=== PATIENT | female | born 1950 | race Caucasian/White ===

== ENCOUNTER 2020-02-11 12:02 | Day surgery (SDC) | payer MEDICARE, BC ==
[~2020-02-11] VITALS: Ht 170.2 cm; Wt 85.5 kg
[~2020-02-11 12:02] MED LIST: ANTACID300 MG PO; CO Q-10200 MG PO; FLUTICASONE-SA1 EAC3 INH; FOLIC ACID0.8 MG PO; LEVOTHYROXINE50 MCG PO; VITAMIN D210 MCG PO
[2020-02-11] MEDS ORDERED: 24 HOUR ALLERG9.9 ML (12:20)
--- NOTE | 2020-02-11 13:19 | NUR ---
02/11/20 1319 Maria Dolores Fragoso 1315- PT TO PACU IN LL POSITION. EYES OPEN BUT DROWSY. DENIES PAIN AND NAUSEA. BREATHING EASY AND UNLABORED. SPO2 >95% ON 3 L O2 VIA NC. PT ENCOURAGED TO PASS GAS.
--- NOTE | 2020-02-13 07:58 | OR ---
[facility] [address], [place] [address] Signed DATE OF OPERATION: 02/11/2020 SURGEON: Patrick Hilliard MD PREOPERATIVE DIAGNOSIS: History of tubular adenoma, 2013. POSTOPERATIVE DIAGNOSIS: Normal colon to cecum. PROCEDURE: Total colonoscopy to cecum. ANESTHESIA: Intravenous sedation, fentanyl 100 mcg and Versed 4 mg. INDICATION: This 69-year-old white woman is a patient of Dr. Andrzej Perez and well known to me from the past. She has undergone breast cancer treatment by me, which included lumpectomy, sentinel lymph node biopsy, radiation therapy and chemotherapy in 2005. She is symptom-free as regards to colon currently. She is admitted at this time to undergo colonoscopy for surveillance. She understands the risks of bleeding, infection, perforation. FINDINGS: The prep was excellent. Complete colonoscopy was undertaken to the cecum without question with good visualization of the appendiceal orifice and ileocecal valve. There was no sign of polyps or other abnormality. DESCRIPTION OF PROCEDURE: The patient was brought to the endoscopy suite and placed in lateral decubitus position, given intravenous sedation to the point of slurred speech and nystagmus. Digital rectal examination was normal. An Olympus video colonoscope was passed in the rectum and manipulated throughout the colon ultimately intubating the cecum. The appendiceal orifice was well identified. The scope was withdrawn from that point and examination throughout showed no sign of polyps, diverticular formation, colitis, or cancer. Retroflex view in the rectum was not technically possible. Good visualization of the rectum was noted. Otherwise, showing no sign of abnormality. The scope was removed and the patient was taken to the Electronically Signed By: PATRICK HILLIARD MD 02/13/20 0758 PATIENT NAME: MER PETERSON OPERATIVE REPORT DATE OF : 50 REPORT #: [id number] PHYSICIAN: PATRICK HILLIARD MD PCP: ANDRZEJ PEREZ DO REPORT IS CONFIDENTIAL AND NOT TO BE RELEASED WITHOUT AUTHORIZATION [facility] [address] [place] [id number] Signed recovery room in good condition, having suffered no complication. CONCLUDING DIAGNOSIS: Normal colon to cecum. PLAN: Recommend repeat colonoscopy in 5 years sooner if clinically indicated. She will return to the ongoing care of Dr. Perez. MD LAN Jin/BENNETTL /[id number] cc: Andrzej Perez DO Copies: ANDRZEJ PEREZ DO ~ Electronically Signed By: PATRICK HILLIARD MD 02/13/20 0758 PATIENT NAME: MER PETERSON OPERATIVE REPORT DATE OF : 50 REPORT #: [id number] PHYSICIAN: PATRICK HILLIARD MD PCP: ANDRZEJ PEREZ DO REPORT IS CONFIDENTIAL AND NOT TO BE RELEASED WITHOUT AUTHORIZATION
== END 2020-02-11 13:50 | disposition home or self-care (01) ==
LOC: DS 12:02 → OPS 12:02 → DS 13:00 → OPS 13:00
PROVIDERS: ATTEND Surgery
PROC: 0DJD8ZZ Inspection of Lower Intestinal Tract, Via Natural or Artificial Opening Endoscopic (ICD-10-PCS; principal; 2020-02-11 13:00)
DX: Z12.11 Encounter for screening for malignant neoplasm of colon (principal); Z86.010 Personal history of colon polyps; Z79.899 Other long term (current) drug therapy; Z78.0 Asymptomatic menopausal state
CPT/HCPCS: 99153; G0500; J2250; J3010

== ENCOUNTER 2020-12-09 12:08 | Emergency (ER) | payer MEDICARE, BC ==
[~2020-12-09] VITALS: Ht 170.2 cm; Wt 85.3 kg
[~2020-12-09 12:08] MED LIST changes: +24 HOUR ALLERG9.9 ML
== END 2020-12-09 17:12 | disposition home or self-care (01) ==
LOC: ED 12:08
DX: U07.1 COVID-19 (principal); Z85.3 Personal history of malignant neoplasm of breast
CPT/HCPCS: 80053; 85025; 99283; J7030